=== PATIENT | male | born 1985 | race Caucasian/White ===

== ENCOUNTER 2021-09-24 22:19 | Emergency (ER) | payer OTHER ==
[~2021-09-24] VITALS: Ht 180.3 cm; Wt 290.0 kg
[2021-09-24 22:20] VITALS: BP 87/70
[2021-09-24] MEDS ORDERED: mag hydrox/Alum hydrox/simeth 30ml oral suspension PO ONE (22:25)
== END 2021-09-24 22:44 | disposition home or self-care (01) ==
LOC: ER 22:19
DX: Z04.1 Encounter for examination and observation following transport accident (principal); M25.462 Effusion, left knee; Z72.89 Other problems related to lifestyle
CPT/HCPCS: 99283